=== PATIENT | female | born 1960 | race Two or more races ===

== ENCOUNTER 2024-08-08 18:12 | Emergency (ER) | payer OTHER, SELFPAY ==
[2024-08-08 18:46] VITALS: BP 133/82; PULSE 77; RESP 18; TEMP 37.2; O2SAT 98; BMI 28.3
--- NOTE | 2024-08-08 18:53 | XR_ITS ---
Examination: Shoulder,left, 3 views Technique: Shoulder AP internal rotation, AP external rotation, Y view shoulder, 3 views Exam date and time :August 08, 2024 1909 hrs. Indications: Patient fell today with injury to the shoulder, shoulder pain. Findings: No shoulder fracture or dislocation No cystic joint separation Impression: No shoulder fracture or dislocation
[2024-08-08] MEDS: HYDROcodone/APAP 5/325 TABLET 1 TAB PO (19:30)
--- NOTE | 2024-08-08 20:04 | EDNOTE_ITS ---
Upper Extremity Injury RME/HPI General Chief Complaint: Extremity Injury, Upper Stated Complaint: POSSIBLE SHOULDER DISLOCATION Time Seen by Provider: 08/08/24 18:56 Arrival date/time: 08/08/24 18:12 63F with history of anxiety presents to ED with L shoulder pain after slip/fall down 4 steps. Patient states she did hit her head, but got up and has no pain. Patient denies LOC, AMS, seizures, N/V, vision changes, and neck pain. Limitations: no limitations Related Data Home Medications ?Medication ?Instructions ?Recorded ?Confirmed alprazolam 0.5 mg tablet (Xanax) 0.5 mg PO BID #0 tabs 07/01/15 Previous Rx's ?Medication ?Instructions ?Recorded ibuprofen 600 mg tablet 600 mg PO Q6H #30 tabs 09/11/22 triamcinolone acetonide 0.1 % 1 applic topical QDAY #30 grams 06/26/24 topical cream Allergies Allergy/AdvReac Type Severity Reaction Status Date / Time No Known Allergies Allergy Verified 09/11/22 09:17 Review of Systems Review of Systems Systems Reviewed: All systems reviewed, normal except as documented Constitutional Constitutional: Reports system reviewed and no additional complaints, except as documented, Denies fever(s) and Denies headache(s) ENT Ears, Nose, Mouth, and Throat: Denies disequilibrium and Denies headache(s) Cardiovascular Cardiovascular: Reports system reviewed and no additional complaints, except as documented, Denies chest pain and Denies dyspnea Respiratory Respiratory: Reports system reviewed and no additional complaints, except as documented, Denies cough and Denies dyspnea Gastrointestinal Gastrointestinal: Reports system reviewed and no additional complaints, except as documented, Denies abdominal pain, Denies nausea and Denies vomiting Musculoskeletal Musculoskeletal: Reports as per HPI and Reports arthralgias Neurologic Neurologic: Reports system reviewed and no additional complaints, except as documented, Denies confusion, Denies disequilibrium and Denies headache(s) Psychiatric Psychiatric: Denies confusion Past Medical History Past Medical History OTHER HISTORY: Positive Blood Transfusions Social History SMOKING STATUS: Never smoker ED Exam General Limitations: Present no limitations General appearance: Present alert and in no apparent distress Head Head exam: Present atraumatic Eye Eye exam: Present normal appearance, PERRL and EOMI ENT ENT exam: Present normal exam, normal oropharynx and mucous membranes moist Neck Neck exam: Present normal inspection, full ROM and trachea midline Chest Chest inspection: Present normal inspection and symmetric chest wall rise Respiratory Respiratory exam: Present normal lung sounds bilaterally Cardiovascular Cardiovascular exam: Present regular rate, normal rhythm and normal heart sounds Abdominal Exam Abdominal exam: Present soft and normal bowel sounds Expanded Upper Extremity Exam Shoulder exam: Present tenderness (L) Back Exam Back exam: Present normal inspection and full ROM Neurological Exam Neurological exam: Present alert, oriented X3 and CN II-XII intact Psychiatric Psychiatric exam: Present normal affect and normal mood Skin Skin exam: Present warm, dry, intact and normal color Course Quality Measures none Orders Category Date Time Status sling [Splint / Immobilizer] STAT Care 08/08/24 19:46 Active XR shoulder LT min 2V Stat Exams 08/08/24 18:53 Completed HYDROcodone*/APAP 5/325 [[place] 5/325] Med 08/08/24 18:53 Discontinued 1 tab PO X1 ONE Vital Signs Vital signs: Vital Signs Temperature 98.9 F 08/08/24 18:46 Pulse Rate 77 08/08/24 18:46 Respiratory Rate 18 08/08/24 18:46 Blood Pressure 133/82 H 08/08/24 18:46 Pulse Oximetry (%) 98 08/08/24 18:46 Oxygen Delivery Method Room Air 08/08/24 18:46 O2 at 98% on RA and WNLs Extremity Injury MDM Narrative MDM Narrative:: 63F with history of anxiety presents to ED with L shoulder pain after slip/fall down 4 steps. Patient states she did hit her head, but got up and has no pain. Patient denies LOC, AMS, seizures, N/V, vision changes, and neck pain. Physical exam reveals normal pupil response and EOM. ENT clear. No neck tenderness. Normal ROM. L shoulder tenderness and reduced ROM. Patient is afebrile, calm, and alert. Patient declines CT head/neck. XR shoulder no abnormalities. Given meds, sling, and career guidance counselor. Patient data External records reviewed:: [facility] previous records Clinical information provided by:: patient Social determinants that could affect healthcare access:: none Patient has the following chronic illnesses:: none How is presenting disease/condition affected by chronic disease/condition?: no chronic disease Evaluation data The following diagnostics were reviewed and interpreted by me:: radiology exam(s) Lab and/or radiology exams considered but not ordered:: ordered Interpretation Summary: above Medications / Prescriptions Medications or Prescriptions considered but not ordered:: ordered Medication administrations:: Medication Administration History Discontinued Medications Hydrocodone Bitart/Acetaminophen (Hydrocodone/Apap 5/325 Tablet) 1 tab PO X1 ONE Stop: 08/08/24 18:54 Last Admin: 08/08/24 19:30 Dose: 1 tab Documented By: MP above Consultations Consultation(s) initiated? (list below): No Diagnosis Upper Extremity Injury Differential Diagnosis: dislocation of shoulder, fracture of humerus, fracture of clavicle and other (CHI, shoulder pain) Most likely diagnosis given after review of the tests above:: CHI and shoulder pain Admission Indicated Admission indicated?: not indicated Admission Request Was there a request for admission?: No Disposition Plan Disposition Plan: Discharge Discharge Attestation Discharge Attestation: The patient and all family members were given an opportunity to ask questions and understood the discharge instructions. Discharge instructions specifically effects, indications for sooner follow up or return to the emergency department, and the expected course of current diagnosis. Patient condition: Stable Discharge Plan Plan Patient Disposition: HOME (Self Care) Disposition Comment: Stable Prescriptions/Referrals Prescriptions/Med Rec: No Action alprazolam [Xanax] 0.5 MG tablet 0.5 mg PO BID Qty: 0 triamcinolone acetonide 0.1 % cream 1 applic topical QDAY Qty: 30 3RF ibuprofen 600 mg tablet 600 mg PO Q6H Qty: 30 0RF Referrals: Melani Gonsalves MD [Primary Care Provider] - In 1 week Problem List Clinical Impression: Shoulder pain, CHI (closed head injury) Patient/Caregiver Discharge Instructions Education Materials: ED Shoulder Contusion Additional Instructions: Please follow-up with PCP within 24-48 hours and return immediately if symptoms worsen. If problem persists, recommend outpatient PT and/or MRI follow-up. In the meantime, rest, use ice/heat, and/or compression. For the next 24-48 hours, watch for unexplained nausea/vomiting, confusion, lethargy, and seizures. Print Language: Japanese Stand Alone Forms: Patient Portal Info Letter DANIELLE/JAY Supervising Physician DANIELLE/JAY Supervising Physician: Dr. Holliday
[2024-08-08 20:10] VITALS: RESP 18
== END 2024-08-08 20:12 | disposition home or self-care (01) ==
PROVIDERS: Emergency Provider Emergency Medicine; PCP Family Medicine
DX: S49.92XA Unspecified injury of left shoulder and upper arm, initial encounter (principal); S09.90XA Unspecified injury of head, initial encounter; W10.9XXA Fall (on) (from) unspecified stairs and steps, initial encounter
CPT/HCPCS: 73030; 99283; A4565; A9270